=== PATIENT | male | born 1960 | race Caucasian/White ===

== ENCOUNTER 2019-09-21 12:07 | Emergency (ER) | payer MEDICAID ==
[~2019-09-21] VITALS: Ht 170.2 cm; Wt 68.0 kg
[2019-09-21 12:15] VITALS: BP 138/87
[2019-09-21] MEDS ORDERED: MORPHINE SULFATE 2 MG/ML SYR IVP ONE ×2 (12:15→13:05)
[2019-09-21] MEDS ORDERED: PIPERACILLIN/TAZOBACTAM 3.375 GM in DEXTROSE 5% 50 ML IV ONE (12:15)
[2019-09-21] MEDS ORDERED: NACL 0.9% 1,000 ML IV ONE (12:15)
--- NOTE | 2019-09-21 12:20 | NUR ---
58 YEAR OLD MALE COMPLAINS OF LEFT THUMB AMPUTATION X 20MINS AGO. PT STATES THAT HE WAS CUTTING WOOD USING A SAW AND THEN THUMB WAS CUT OFF. LEFT THUMB STUB COVERED WITH GAUZE TO STOP BLEEDING. SEPERATED THUMB TIP PLACED INTO ICE WITH SALINE UPON ARRIVAL. PT AOX4, BREATHING EVEN AND UNLABORED, SKIN WARM AND DRY. BED IN LOWEST POSITION, LOCKED, BED RAIL UPX1. PMH - DENIES ALLERGIES - NKA
--- NOTE | 2019-09-21 12:31 | NUR ---
LAB AT BEDSIDE.
[2019-09-21] MEDS ORDERED: PIPERACILLIN/TAZOBACTAM 3.375 GM VIAL IV ONE (12:35)
[2019-09-21 12:47] LABS: BASOPHILS # (AUTO) 0.2 K/uL (0.00-0.22); BASOPHILS % (AUTO) 1.8 % (0.0-2.0); EOSINOPHILS # (AUTO) 0.2 K/uL (0-0.4); HEMATOCRIT 48.5 % (36-52); HEMOGLOBIN 16.6 g/dL (12.0-18.0); LYMPHOCYTES # (AUTO) 3.3 K/uL (2.0-11.5); LYMPHOCYTES % (AUTO) 31.8 % (20.5-51.1); MEAN CORPUSCULAR HEMOGLOBIN 33 pg (27-31); MEAN CORPUSCULAR HGB CONC 34 g/dL (33-37); MEAN CORPUSCULAR VOLUME 97.3 fL (80-94); MONOCYTES # (AUTO) 0.9 K/uL (0.8-1.0); MONOCYTES % (AUTO) 8.7 % (1.7-9.3); NEUTROPHILS # (AUTO) 5.7 K/uL (1.8-7.7); NEUTROPHILS % (AUTO) 55.7 % (42.2-75.2); PLATELET COUNT (AUTO) 291 K/uL (140-450); RED BLOOD CELL COUNT(AUTO) 4.98 MIL/uL (4.20-6.10); RED CELL DISTRIBUTION WIDTH 13.8 % (11.6-13.7); WHITE BLOOD COUNT (AUTO) 10.3 K/uL (4.8-10.8)
--- NOTE | 2019-09-21 12:52 | NUR ---
EMT AT BEDSIDE CLEANING WOUND
[2019-09-21 12:59] LABS: PROTHROMBIN TIME 11.8 secs (10.8-13.4)
[2019-09-21 13:03] LABS: ALBUMIN 4.4 g/dL (3.4-5.0); ANION GAP 18.9 (8-16); CARBON DIOXIDE 23.7 mmol/L (21-32); CREATININE 0.9 mg/dL (0.6-1.3); POTASSIUM 3.6 mmol/L (3.5-5.1); TOTAL BILIRUBIN 0.6 mg/dL (0.0-1.0)
--- NOTE | 2019-09-21 14:10 | NUR ---
TALKED TO PT WITH TRANSLATION THAT WE ARE STILL TRYING TO FIND PLACEMENT FOR PT FOR TRANSFER
[2019-09-21] MEDS ORDERED: LIDOCAINE 2% 1000 MG/50 ML VIAL INJ ONE (14:20)
--- NOTE | 2019-09-21 14:27 | NUR ---
ERMD AT BEDSIDE
[2019-09-21] MEDS ORDERED: BACITRACIN OINT 500 UNITS/GM PKT TP ONE (14:51)
[2019-09-21 15:09] VITALS: BP 138/87
--- NOTE | 2019-09-21 15:10 | NUR ---
Patient discharged with v/s stable. Written and verbal after care instructions given and explained. Patient alert, oriented and verbalized understanding of instructions. Ambulatory with steady gait. All questions addressed prior to discharge. ID band removed. Patient advised to follow up with PMD. Rx of NORCO, BACRTRIM, CLINDA, NARCAN, AND MOTRIN given. Patient educated on indication of medication including possible reaction and side effects. Opportunity to ask questions provided and answered.
--- NOTE | 2019-09-22 09:11 | NUR ---
LATE ENTRY- ZOSYN IV FLUIDS DISCONTINUED AT 1510.
== END 2019-09-21 15:10 | disposition home or self-care (01) ==
LOC: MED 12:07
DX: S61.012A Laceration without foreign body of left thumb without damage to nail, initial encounter (principal); Z89.012 Acquired absence of left thumb; W27.0XXA Contact with workbench tool, initial encounter; Y93.89 Activity, other specified; Y92.89 Other specified places as the place of occurrence of the external cause; Y99.8 Other external cause status
CPT/HCPCS: 12001; 36415; 80053; 85025; 85610; 85730; 87040; 96365; 96366; 96375; 99284; J2001; J2270; J2543; J7030